=== PATIENT | female | born 1980 | race Caucasian/White ===

== ENCOUNTER 2018-11-25 11:21 | Emergency (ER) | payer BC ==
[2018-11-25] MEDS ORDERED: Sodium Chloride 0.9% 1,000 ML IV ONE (11:57)
[2018-11-25 12:21] LABS: HEMOGLOBIN 8.8 gm/dL (12-16); MEAN PLATELET VOLUME 7.1 fl
[2018-11-25 12:24] LABS: INR 0.94 (0.5-1.4); PROTHROMBIN TIME (TEST) 9.8 SECONDS (9.5-11.5)
[2018-11-25 12:32] LABS: RED BLOOD COUNT 4.29 Mil/cmm (3.80-5.10)
[2018-11-25 12:33] LABS: MEAN CELL VOLUME 65.2 fl (81-100); MEAN CORPUSCULAR HEMOGLOBIN 20.4 pg (27.0-31.0); MEAN CORPUSCULAR HGB CONC 31.3 pg (28.0-36.0); PLATELET COUNT 336 Th/cmm (150-400); RED CELL DISTRIBUTION WIDTH 18.4 % (11.5-20.0)
[2018-11-25 12:36] LABS: ALB/GLOB RATIO 1.5 (1.0-1.8); ALBUMIN 4.1 gm/dL (3.7-5.3); ALKALINE PHOSPHATASE 50 U/L (34-104); ANION GAP 11.9 (7.0-16.0); BILIRUBIN,TOTAL 0.4 mg/dL (0.3-1.0); BUN - UREA NITROGEN 12 mg/dL (7-25); CALCIUM SERUM 8.9 mg/dL (8.6-10.3); CARBON DIOXIDE 22.9 mEq/L (21.0-31.0); CHLORIDE 104 mEq/L (98-107); CHOLESTEROL 177 mg/dL (<200); CREATININE - SERUM 0.6 mg/dL (0.6-1.2); CREATININE KINASE 32 U/L (30-223); GFR AFRICAN-AMERICAN > 60.0 ml/min (>90); GFR NON AFRICAN-AMERICAN > 60.0 ml/min; GLUCOSE 89 mg/dL (70-105); HDL -HIGH DENSITY LIPOPROTEIN 45 mg/dL (23-92); POTASSIUM SERUM 3.8 mEq/L (3.5-5.1); SGOT 10 U/L (13-39); SGPT/ALT 8 U/L (7-52); SODIUM SERUM 135 mEq/L (136-145); TOTAL PROTEIN,SERUM 6.8 gm/dL (6.0-8.3); TRIGLYCERIDES 169 mg/dL (<150)
[2018-11-25 12:37] LABS: AMYLASE SERUM 21 U/L (29-103); LIPASE 12 U/L (11-82)
[2018-11-25] MEDS ORDERED: Morphine Sulfate 2 mg/mL 1mL Syr IV STA (12:47)
[2018-11-25] MEDS ORDERED: IOHEXOL 300mgI/mL 100 ML VIAL IVP ONE (12:55)
[2018-11-25 12:58] LABS: BAND NEUTROPHILE 0 % (0-10); BASOPHIL 0 % (0-3); EOSINOPHIL 1 % (0-5); LYMPHOCYTE 23 % (20-50); MONOCYTE 8 % (2-10); NEUTROPHILS 68 % (40-80)
[2018-11-25] MEDS ORDERED: Morphine Sulfate 2 mg/mL 1mL Syr ONE (13:00)
--- NOTE | 2018-11-25 13:27 | ED Physician Chart ---
ED Chief Complaint/HPI - Patient Information Date Seen:: 11/25/18 Time Seen:: 11:50 Chief Complaint:: Abdominal Pain History of Present Illness:: onset x 3 days of intermittent, crampy, diffuse abdominal pain, N/V/D x 3; pt denies trauma, LOC, ALOC, AMS, H/As, S/T, neck pain, cough, C/P, SOB, A/C, melena, hematemesis, hematochezia, VB, VD, fever, chills, or urinary s/s; pt is eating and urinating well; pt last urinated one hour [employer] Allergies:: Allergies Allergy/AdvReac Type Severity Reaction Status Date / Time No Known Allergies Allergy Verified 11/25/18 11:50 Vitals:: Vital Signs - 8 hr 11/25/18 11/25/18 11:50 12:56 Temp 98.9 F HR 89 83 RR 16 18 BP 122/79 120/79 O2 Sat % 99 100 Historian:: Patient Review:: Nurse's Note Reviewed, Old Chart Reviewed ED Review of Systems - Review of Systems General/Constitutional: No fever, No chills, No weight loss, No weakness, No diaphoresis, No edema, No loss of appetite Skin: No skin lesions, No rash, No bruising Head: No headache, No light-headedness Eyes: No loss of vision, No pain, No diplopia ENT: No earache, No nasal drainage, No sore throat, No tinnitus Neck: No neck pain, No swelling, No thyromegaly, No stiffness, No mass noted Cardio Vascular: No chest pain, No palpitations, No PND, No orthopnea, No edema Pulmonary: No SOB, No cough, No sputum, No wheezing GI: Nausea, Vomiting, Diarrhea, Pain, No melena, No hematochezia, No constipation, No hematemesis G/U: No dysuria, No frequency, No hematuria, No nacturia 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, No abnormal vaginal bleed, No contraction Musculoskeletal: No bone or joint pain, No back pain, No muscle pain Endocrine: No polyuria, No polydipsia Psychiatric: No prior psych history, No depression, No anxiety, No suicidal ideation, No homicidal ideation, No auditory hallucination, No visual hallucination Hematopoietic: No bruising, No lymphadenopathy Allergic/Immuno: No urticaria, No angioedema Neurological: No syncope, No focal symptoms, No weakness, No paresthesia, No headache, No seizure, No dizziness, No confusion, No vertigo ED Past Medical History - Past Medical History Obtainable: Yes Past Medical History: Other (Cholelithiasis; Anemia) Family History: HTN Social History: Non Smoker, No Alcohol, No Drug Use, Single Surgical History: Cholecystectomy Psychiatricy History: None Medication: Reviewed Family Medical History - Family Member Father Living Status: Still Living Other Medical History: cardiac arrest ED Physical Exam - Physical Examination General/Constitutional: Awake, Well-developed, well-nourished, Alert, No distress, GCS 15, Non-toxic appearing, Ambulatory Head: Atraumatic Eyes: Lids, conjuctiva normal, PERRL, EOMI Skin: Nl inspection, No rash, No skin lesions, No ecchymosis, Well hydrated, No lymphadenopathy ENMT: External ears, nose nl, TM canals nl, Nasal exam nl, Lips, teeth, gums nl , Oropharynx nl, Tonsils nl Neck: Nontender, Full ROM w/o pain, No JVD, No nuchal rigidity, No bruit, No mass, No stridor Other Neck comments:: supple; no meningeal signs; no cervical tenderness Respiratory: Nl effort/Exclusion, Clear to Auscultation, No Wheeze/Rhonchi/Rales Cardio Vascular: RRR, No murmur, gallop, rubs, NL S1 S2, Carotid/Femoral/Distal pulses equal bilaterally GI: No tenderness/rebounding/guarding, No organomegaly, No hernia, Normal BS's, Nondistended, No mass/bruits, No McBurney tenderness, Rectum exam nl Other GI comments:: no pulsatile masses; Stool is negative for occult blood : No CVA tenderness Other comments:: /Pelvic Exams: deferred by pt Extremities: No tenderness or effusion, Full ROM, normal strength in all extremities, No edema, Normal digits & nails Neuro/Psych: Alert/oriented, DTR's symmetric, Normal sensory exam, Normal motor strength, Judgement/insight normal, Mood normal, Normal gait, No focal deficits Other Neuro/Psych comments:: no focal signs Misc: Normal back, No paraspinal tenderness ED Labs/Radiology/EKG Results - Lab Results Results: Laboratory Tests 11/25/18 11/25/18 11/25/18 12:02 12:02 12:02 WBC 5.0 RBC 4.29 Hgb 8.8 L Hct 28.0 L MCV 65.2 L MCH 20.4 L MCHC Differential 31.3 RDW 18.4 Plt Count 336 MPV 7.1 Add Manual Diff YES Band Neutrophils % 0 Neutrophils (Manual) 68 Lymphocytes 23 Monocytes 8 Eosinophils 1 Basophils 0 PT 9.8 INR 0.94 Sodium 135 L Potassium 3.8 Chloride 104 Carbon Dioxide 22.9 Anion Gap 11.9 BUN 12 Creatinine 0.6 Est GFR ( Amer) > 60.0 Est GFR (Non-Af Amer) > 60.0 BUN/Creatinine Ratio 20.0 Glucose 89 Calcium 8.9 Total Bilirubin 0.4 AST 10 L ALT 8 Alkaline Phosphatase 50 Creatine Kinase 32 Troponin I B-Natriuretic Peptide Total Protein 6.8 Albumin 4.1 Globulin 2.7 Albumin/Globulin Ratio 1.5 Triglycerides 169 H Cholesterol 177 LDL Cholesterol Direct 121 HDL Cholesterol 45 Amylase Lipase Serum , Qual 11/25/18 11/25/18 11/25/18 12:02 12:02 12:02 WBC RBC Hgb Hct MCV MCH MCHC Differential RDW Plt Count MPV Add Manual Diff Band Neutrophils % Neutrophils (Manual) Lymphocytes Monocytes Eosinophils Basophils PT INR Sodium Potassium Chloride Carbon Dioxide Anion Gap BUN Creatinine Est GFR ( Amer) Est GFR (Non-Af Amer) BUN/Creatinine Ratio Glucose Calcium Total Bilirubin AST ALT Alkaline Phosphatase Creatine Kinase Troponin I < 0.01 L B-Natriuretic Peptide 16.8 Total Protein Albumin Globulin Albumin/Globulin Ratio Triglycerides Cholesterol LDL Cholesterol Direct HDL Cholesterol Amylase 21 L Lipase 12 Serum , Qual 11/25/18 12:02 WBC RBC Hgb Hct MCV MCH MCHC Differential RDW Plt Count MPV Add Manual Diff Band Neutrophils % Neutrophils (Manual) Lymphocytes Monocytes Eosinophils Basophils PT INR Sodium Potassium Chloride Carbon Dioxide Anion Gap BUN Creatinine Est GFR ( Amer) Est GFR (Non-Af Amer) BUN/Creatinine Ratio Glucose Calcium Total Bilirubin AST ALT Alkaline Phosphatase Creatine Kinase Troponin I B-Natriuretic Peptide Total Protein Albumin Globulin Albumin/Globulin Ratio Triglycerides Cholesterol LDL Cholesterol Direct HDL Cholesterol Amylase Lipase Serum , Qual NEGATIVE Comments:: Reviewed - Radiology Results Comments:: Ventral/Umbilical Hernia; U/S: + Uterine Fibroid; + Bilateral Ovarian Cysts - EKG Interpretations EKG Time:: 13:41 Rate & Rhythm: 73; NSR Comments:: LAE; LAD; old ASMI; non-specific st-t changes ED Septic Shock - . Is Septic Shock (SBP<90, OR Lactate>4 mmol\L) present?: No - <6hrs of presentation: Vital Signs: Vital Signs - 8 hr 11/25/18 11/25/18 11:50 12:56 Temp 98.9 F HR 89 83 RR 16 18 BP 122/79 120/79 O2 Sat % 99 100 ED Reassessment (Disposition) - Reassessment Reassessment:: pt tolerated po fluids well in ER; pt is asymptomatic upon discharge Reassessment Condition:: Improved - Diagnosis Diagnosis:: Abdominal Pain; N/V/D; Anemia; AGE; Hyponatremia; Dehydration; UTI; Ventral/ Umbilical Hernia; Uterine Fibroid; Ovarian Cysts; Pelvic Pain; Cystic Pelvic Masses; Iron-Deficient Anemia - Aftercare/Follow up Instructions Aftercare/Follow-Up Instructions:: Counseled pt regarding lab results/diagnosis & need follow up, Refer to Discharge Instructions, Counseled pt & family regarding lab results/diagnosis & need follow up Medication Prescribed:: Rx: Keflex 500mg po qid x 10 days; Tylenol/Mylanta: Take all medications as prescribed; Clear Liquid Diet; Encourage Fluids; Be compliant with taking Iron for Anemia - Patient Disposition Discharge/Transfer:: Home Condition at Disposition:: Stable, Improved (X-Rays Instructions; Ultrasound Instructions; RTER prn if existing s/s reoccur and/or get worse and/or any other new s/s occur; ACIs given for all above Dx; Refer to [facility] Specialist/GI Specialist/Urologist/GI Surgeon/Administration Assistant/Suspender Cutter EDDIE: F/U with PMD in one day or prn; RTER prn if concerned)
--- NOTE | 2018-11-25 14:24 | Diagnostic Imaging Report ---
CT scan abdomen and pelvis with intravenous contrast HISTORY: Pain Total DLP equals 585 CTDI equals 12.2 Axial sections were obtained from the xiphoid process down to the pubic symphysis. The liver exhibits a homogeneous parenchyma. No focal lesions. The spleen appears normal. Surgical changes noted in the gastric/. Gastric region. No focal abnormality seen within the pancreas. Right kidney is unremarkable. A 1.0 cm cyst is seen in the lateral cortex of the left kidney. No hydronephrosis. There is an approximate 2.3 cm defect noted within the anterior abdominal wall at the level of the umbilicus. This appears to be associated with nondilated small bowel. The exam of the pelvis demonstrates an approximate 8.0 cm right adnexal cystic mass. Suggestion of septation. An additional 2.0 cm cystic mass also noted in the area. Cystic lesions noted in the left adnexal area. The largest measures approximately 3.8 cm. There is a bulbous shaped uterus. Somewhat irregular contour may be associated fibroid changes. No free fluid within the pelvis. No bowel dilatation. No definite abnormality seen in the region of the appendix. IMPRESSION: 1. Relatively large predominantly cystic pelvic masses. These appear to be somewhat thick walled and possibly septated. Etiology uncertain. Clinical correlation and a pelvic ultrasound exam would provide additional characterization and assessment. 2. Ventral/umbilical hernia associated with nondilated small bowel 3. Surgical changes within the gastric area.
[2018-11-25 14:25] LABS: URINE SOURCE CLEAN C
[2018-11-25 14:29] LABS: URINE BILIRUBIN NEGATIVE (NEGATIVE); URINE BLOOD NEGATIVE (NEGATIVE); URINE GLUCOSE (UA) NEGATIVE (NEGATIVE); URINE KETONE TRACE mg/dL (NEGATIVE); URINE LEUKOCYTE ESTERASE SMALL (NEGATIVE); URINE NITRATE NEGATIVE (NEGATIVE); URINE PROTEIN NEGATIVE (NEGATIVE); URINE UROBILINOGEN 0.2 E.U./dL (0.2 - 1.0)
[2018-11-25 15:10] LABS: URINE CLARITY CLEAR (CLEAR); URINE COLOR YELLOW; URINE MICROSCOPIC INDICATED? YES
[2018-11-25 15:18] LABS: URINE RBC NONE SEEN /hpf (0-5)
[2018-11-25 15:19] LABS: URINE EPITHELIAL CELLS RARE /lpf (FEW); URINE WBC 0-2 /hpf (0-5)
[2018-11-25 15:20] LABS: URINE BACTERIA NONE SEEN /hpf (NONE SEEN)
[2018-11-25] MEDS ORDERED: cefTRIAXone 1 GM in Sodium Chloride 0.9% 50 ML IV ONE (15:40)
--- NOTE | 2018-11-26 08:40 | Diagnostic Imaging Report ---
Exam: Pelvic ultrasound HISTORY: Pelvic pain Prior exams: None Findings: Real-time ultrasound summation of pelvis was performed multiple planes. The study was correlated with prior CT examination of the abdomen pelvis of 11/25/2018. The study demonstrates uterus measuring 9.4 x 6.6 x 6.7 cm in diameter with endometrial thickness of the 1.2 cm. Small amount of free fluid is noted cul-de-sac There is evidence for a 3.6 x 3.6 cm fibroid mass in the body of uterus. Right ovary overall diameter is 9.1 x 7.1 x 7.6 cm. Left ovary measures 5.2 x 3.6 x 3.6 cm. Right ovary complex cyst with low internal echoes measuring 7.8 x 6.1 x 6.6 cm appreciated. Left ovary complex cyst with internal echoes measuring 2.9 x 2.1 x 2.5 cm appreciated. IMPRESSION: 1. Prominence of endometrial canal up to 1.2 cm. Bilateral large ovarian cysts which appear to be complex with internal echogenic echoes, follow-up exam recommended. Hemorrhagic cysts cannot be excluded. 3.6 cm fibroid mass in the posterior body uterus.
== END 2018-11-25 17:44 | disposition home or self-care (01) ==
LOC: ER 11:21
DX: K52.9 Noninfective gastroenteritis and colitis, unspecified (principal); E87.1 Hypo-osmolality and hyponatremia; E86.0 Dehydration; N39.0 Urinary tract infection, site not specified; K42.9 Umbilical hernia without obstruction or gangrene; D25.9 Leiomyoma of uterus, unspecified; D50.9 Iron deficiency anemia, unspecified; N83.209 Unspecified ovarian cyst, unspecified side; Z90.49 Acquired absence of other specified parts of digestive tract
CPT/HCPCS: 99284; 96365; 96375; 94760; 93005; 76856; 74177; 84484; 83880; 36415; 85007; 85025; 85610; 81001; 82150; 82550; 84703; 81025; 83690; 80053; 80061; J2270; J2405; J0696; Q9967; Z7502